=== PATIENT | female | born 1965 | race Caucasian/White ===

== ENCOUNTER 2016-09-27 14:03 | Emergency (ER) | payer SELFPAY ==
[~2016-09-27] VITALS: Ht 165.1 cm; Wt 75.0 kg
[2016-09-27 14:05] VITALS: BP 153/86; PULSE 92; RESP 14; TEMP 97.7; O2SAT 98
--- NOTE | 2016-09-27 14:36 | PD ---
HPI Chief Complaint: Musculoskeletal Complaint Time Seen by Provider: 14:35 Travel History International Travel<30 days: No Contact w/Intl Traveler<30days: No Traveled to known affect area: No History of Present Illness HPI Patient comes in complaining of right knee pain that began this morning. Patient denies any known direct trauma. States she went to stand up after kneeling down when she heard a pop in her right knee causing the pain throughout her knee that radiates proximally and distally. Patient applied ice prior coming to the emergency department. Pain is worse with standing and certain movement. Denies any numbness or tingling. PFSH Past Medical History Medical History: Denies Significant Hx Tetanus Vaccination: > 5 Years Influenza Vaccination: No ?: Not Social History Alcohol Use: Yes (WINE OCC) Tobacco Use: Yes (1 PPK) Substance Use: No Allergies-Medications (Allergen,Severity, Reaction): Coded Allergies: No Known Allergies (Unverified , 09/27/16) Reported Meds & Prescriptions Reported Meds & Active Scripts Active Naprosyn (Naproxen) 500 Mg Tab 500 Mg PO Q12HR PRN Review of Systems Except as stated in HPI: all other systems reviewed are Neg Physical Exam Narrative GENERAL: Well-developed, overly nourished, in no acute distress, and non-ill appearing. SKIN: Warm and dry. HEAD: Atraumatic. Normocephalic. EYES: Pupils equal and round. EOMI. No scleral icterus. No injection or drainage. ENT: No nasal bleeding or discharge. Mucous membranes pink and moist. NECK: Trachea midline. Supple. No nuclear rigidity. CARDIOVASCULAR: Dorsal pulses 2+ intact bilaterally. Capillary refill is 2 seconds. No pedal edema. RESPIRATORY: No accessory muscle use. No respiratory distress. MUSCULOSKELETAL: No obvious deformities. No clubbing. No cyanosis. No edema. Full range of motion. Knee: Negative patellar apprehension, varus and valgus maneuvers, anterior draw test, and Jade test. Pulses equal BL distal to injury. Capillary refill less than 2 seconds distal to injury and equal BL. FROM distal to injury and equal BL. Strength distal to injury equal BL. NV intact distal to injury. Dorsal pulses equal BL. Patient reports tenderness to palpation over medial and lateral aspect of right knee. NEUROLOGICAL: Awake and alert. No obvious cranial nerve deficits. Motor grossly within normal limits. Normal speech. PSYCHIATRIC: Appropriate mood and affect; insight and judgment normal. Data Data Last Documented VS Vital Signs Date Time Temp Pulse Resp B/P Pulse Ox O2 Delivery O2 Flow Rate FiO2 09/27/16 14:05 97.7 92 14 153/86 98 Room Air Orders Knee, Complete (4vws) (09/27/16 ) Ice/Cold Pack (09/27/16 14:34) Naproxen (Naprosyn) (09/27/16 14:45) Splint Or Brace Apply/Monitor (09/27/16 15:17) Immobilizer Knee 20 Inch (09/27/16 ) [facility] Medical Decision Making Medical Screen Exam Complete: Yes Emergency Medical Condition: Yes Differential Diagnosis Fracture, sprain, dislocation, contusion, other Narrative Course There is no clinical evidence to suspect bony injury by exam. Radiographic examination revealed no fracture seen at this time. No obvious ligamental injury or obvious internal derangement is noted at this time. The anterior, posterior, lateral and medial collateral ligaments are intact and symmetrical. The distal extremity appears neurovascularly intact, without evidence of neurovascular injury nor compartment syndrome. Tendon exam also was intact. The effected limb was immobilized. The patient was discharged on pain medication along with sprain and splint care instructions and given warnings for vascular compromise. The patient is to follow up with Orthopedics. The patient agrees with plan. Patient in no obvious distress upon re-evaluation. All pertinent Radiology result(s) discussed with patient. Patient was asked if they wanted to speak to my attending, which the patient did not wish to do at this time. Any questions/ concerns in reference to patient diagnosis/condition discussed and clarified prior to patient's discharge. Reinforced sheer importance of close follow up with patient's primary physician or primary care clinic and/or orthopedics. Instructed patient to return to ED immediately, if symptoms return/worsen. Pt showed understanding of above instructions. Further instructions and recommendations were detailed in discharge paperwork. Pt ambulated without difficulty out of ED at discharge with crutches. Diagnosis Primary Impression: Right knee sprain Qualified Code: S83.91XA - Sprain of right knee, unspecified ligament, initial encounter Referrals: Zac Cruz MD Patient Instructions: Crutch Instructions (ED), General Instructions, Knee Immobilizer (ED), Knee Sprain (ED) Additional Instructions: Follow-up with your primary care physician and/or orthopedics in 2-3 days for reevaluation. Take all medication as prescribed. Apply ice to affected area 20 minutes per hour as needed for pain. Return to the emergency department if symptoms get worse. Med/Other Pt SpecificInfo: Prescription(s) given Scripts Naproxen (Naprosyn)500 Mg Glf398 Mg PO Q12HR PRN (PAIN SCALE 1 TO 10) #14 TAB Ref 0 Prov:Neil Talbot MD 09/27/16 Disposition: 01 DISCHARGE HOME Condition: Stable James Melgoza Sep 27, 2016 14:36
[2016-09-27] MEDS ORDERED: NAPROXEN 500 MG TAB PO ONE (14:45)
[2016-09-27] MEDS ORDERED: NAPR500 PO (15:19)
--- NOTE | 2016-09-27 15:50 | RADRPT ---
EXAM DATE/TIME: 09/27/2016 15:10 [facility] COMPARISON: No previous studies available for comparison. INDICATIONS : Right knee pain MEDICAL HISTORY : None. SURGICAL HISTORY : None. ENCOUNTER: Initial ACUITY: 1 day PAIN SCORE: 10/10 LOCATION: Right knee FINDINGS: Four view examination of the right knee demonstrates no evidence of fracture or dislocation. Bony mi neralization is normal. The articular surfaces are intact. The suprapatellar soft tissues have a no rmal configuration. CONCLUSION: Unremarkable examination of the right knee. Stan Palomino MD on September 27, 2016 at 15:48 Board Certified Radiologist. This report was verified electronically.
== END 2016-09-27 16:20 | disposition home or self-care (01) ==
LOC: NEPB 14:03
DX: S83.91XA Sprain of unspecified site of right knee, initial encounter (principal); Z72.0 Tobacco use; X58.XXXA Exposure to other specified factors, initial encounter
CPT/HCPCS: 73564; 99283; E0113; L1830